=== PATIENT | female | born 1965 | race American Indian/Alaskan Native ===

== ENCOUNTER 2017-12-03 17:44 | Emergency (ER) | payer OTHER ==
[2017-12-03 18:00] VITALS: BP 174/83
--- NOTE | 2017-12-03 19:02 | XRay Report ---
FINAL REPORT EXAM: XR SHOULDER 2+V LT HISTORY: injury/PULLED BY DOG ON LEASH TECHNIQUE: Frontal and Y-views left shoulder Comparison: None FINDINGS: There is no evidence of fracture or subluxation. The soft tissues are unremarkable. IMPRESSION: 1. No evidence of fracture or subluxation. If the patient remains symptomatic MRI may be helpful for further evaluation.
--- NOTE | 2017-12-03 20:16 | Emergency Department Report ---
HPI - General Chief Complaint: Shoulder Injury Time Seen by Provider: 12/03/17 19:58 - HPI HPI: 52-year-old female presents to the emergency department with complaint of a 2 day history of left shoulder pain that started after the patient was walking her pit bull who tried running off in one direction while she was pulling the lesion another. Since that time the pain is gotten progressively worse. She thought she just pulled a muscle but it is gotten to the point where she has difficulty moving her left upper extremity at all secondary to the pain. She tried some ibuprofen for her symptoms without much relief. She denies any fall to the ground. She has a history of hypertension, coronary artery disease and previous NM. She presents with some elevated blood pressure but says that she has not taken her lisinopril over the past one or 2 days. She gets her primary care down through the [facility]. ED Past Medical Hx - Past Medical History Hx Hypertension: Yes Hx Heart Attack/AMI: Yes (x2) - Surgical History Additional Surgical History: c section - Social History Smoking Status: Current Every Day Smoker - Medications Home Medications: Home Medications Medication Instructions Recorded Confirmed Last Taken Type HYDROcodone/APAP 5-325 [[place] 1 each PO Q6HR PRN #10 tablet 12/03/17 Unknown Rx 5/325] ED Review of Systems ROS: Stated complaint: DISLOCATED SHOULDER Other details as noted in HPI Comment: All other systems reviewed and negative Constitutional: denies: chills, fever Eyes: denies: eye pain, eye discharge, vision change ENT: denies: ear pain, throat pain Respiratory: denies: cough, shortness of breath, wheezing Cardiovascular: denies: chest pain, palpitations Gastrointestinal: denies: abdominal pain, nausea, diarrhea Genitourinary: denies: urgency, dysuria, discharge Musculoskeletal: arthralgia. denies: back pain Skin: denies: rash, lesions Neurological: denies: headache, weakness Physical Exam - Physical Exam Vital Signs: Vital Signs 12/03/17 17:53 Temperature 99.4 F Pulse Rate 91 H Respiratory 18 Rate Blood Pressure 174/83 O2 Sat by Pulse 100 Oximetry Physical Exam: GENERAL: The patient is well-developed well-nourished. HENT: Normocephalic. Atraumatic. Patient has moist mucous membranes. EYES: Extraocular motions are intact. NECK: Supple. Trachea is midline. CHEST/LUNGS: Clear to auscultation. There is no respiratory distress noted. HEART/CARDIOVASCULAR: Regular. There is no tachycardia. There is no murmur. ABDOMEN: Abdomen is soft, nontender. Patient has normal bowel sounds. There is no abdominal distention. SKIN: Skin is warm and dry. NEURO: The patient is awake, alert, and oriented. The patient is cooperative. The patient has no focal neurologic deficits. The patient has normal speech. MUSCULOSKELETAL: There is tenderness to palpation to the left anterior and lateral shoulder but always deformity. There is decreased range of motion of the left upper extremity with both passive and active movement secondary to pain. Radial pulse +2 over 4 to the affected left upper extremity. ED Course Vital Signs 12/03/17 17:53 Temperature 99.4 F Pulse Rate 91 H Respiratory 18 Rate Blood Pressure 174/83 O2 Sat by Pulse 100 Oximetry ED Medical Decision Making - Radiology Data Radiology results: image reviewed interpreted by me: X-ray of the left shoulder does not show any fracture, dislocation or any other acute process. - Medical Decision Making Patient's been dealing with 2 days of left shoulder pain after having it be tugged at by a very strong dog. Since that time she has had trouble with range of motion and has had pain. No obvious swelling or deformity. On examination she appears neurovascularly intact but has pain and trouble with range of motion with both passive and active movement of the affected left upper extremity at the shoulder. X-ray did not show any fracture, dislocation, subluxation. Based on her discomfort and the injury, I suspect that there may be a rotator cuff injury or a muscle tear. The patient will most likely need an MRI but this can be done in the outpatient setting and the patient has been given multiple referrals for orthopedic services. She was placed in an arm sling and given a small amount of pain medication. She will return to the ER with any worsening of her symptoms or any acute distress. The patient does present with some elevated blood pressure. She does have a history of hypertension but has been noncompliant over the past day or so with her lisinopril. We discussed staying away from foods that are high in salt, caffeinated products, avoiding tobacco use and restarting her blood pressure medications. She will keep a blood pressure log. - Differential Diagnosis fracture, dislocation, subluxation, rotator cuff injury Critical Care Time: No Critical care attestation.: If time is entered above; I have spent that time in minutes in the direct care of this critically ill patient, excluding procedure time. ED Disposition Clinical Impression: Left shoulder pain Qualifiers: Chronicity: acute Qualified Code(s): M25.512 - Pain in left shoulder Shoulder injury Qualifiers: Encounter type: initial encounter Laterality: left Qualified Code(s): S49.92XA - Unspecified injury of left shoulder and upper arm, initial encounter Hypertension Qualifiers: Hypertension type: essential hypertension Qualified Code(s): I10 - Essential ( primary) hypertension Disposition: - TO HOME OR SELFCARE Is pt being admited?: No Condition: Stable Instructions: Rotator Cuff Injury (ED), Shoulder Sprain (ED), Hypertension (ED) Additional Instructions: Please follow up with an orthopedic group as soon as possible regarding your left shoulder pain. We are placing you in an arm sling to help support the shoulder and your discomfort. Try and stay away from foods that are high in salt and caffeinated products, and stay away from any tobacco products, to help with your blood pressure. Take your blood pressure medication as prescribed. Keep a blood pressure log. Return to the emergency Department with any worsening of your symptoms or any acute distress. You have been prescribed a medication that is sedating and therefore should not be taken prior to driving, working, and responsible for children and in no way should be mixed with alcohol of any quantity. Prescriptions: HYDROcodone/APAP 5-325 [Van Orin 5/325] 1 each PO Q6HR PRN #10 tablet PRN Reason: Pain Referrals: DENNYS SIMS MD [Staff Physician] - [facility] [Provider Group] - [facility] Forms: Work/School Release Form(ED)
== END 2017-12-03 20:47 | disposition home or self-care (01) ==
LOC: ED 17:44
DX: S49.92XA Unspecified injury of left shoulder and upper arm, initial encounter (principal); I10 Essential (primary) hypertension; I25.2 Old myocardial infarction; I25.10 Atherosclerotic heart disease of native coronary artery without angina pectoris; F17.200 Nicotine dependence, unspecified, uncomplicated; W22.8XXA Striking against or struck by other objects, initial encounter; Y93.89 Activity, other specified; Y92.89 Other specified places as the place of occurrence of the external cause; Y99.8 Other external cause status
CPT/HCPCS: 99283

== ENCOUNTER 2021-02-27 07:54 | Emergency (ER) | payer OTHER ==
[2021-02-27] MEDS ORDERED: SODIUM CHLORIDE 0.9% 1000 ML 1,000 ML IV ONE (11:04)
[2021-02-27] MEDS ORDERED: METOCLOPRAMIDE 10 MG/2 ML INJ IV ONE (11:05)
--- NOTE | 2021-02-27 11:10 | Emergency Department Report ---
ED General Adult HPI - General Chief complaint: Dizziness Stated complaint: dizziness Time Seen by Provider: 02/27/21 10:30 Source: patient, EMS Mode of arrival: Wheelchair Limitations: No Limitations - History of Present Illness Initial comments: Patient is 55 years old female with no significant past medical history. Patient works at [employer]. She stated that she took her flu shot 3 days ago and the next day she started having nausea vomiting and diarrhea. She stated that it get better a little bit but this morning she started having more nausea vomiting and diarrhea. Patient brought to the emergency room complaining of dizziness. Patient stated that she received Zofran by EMS and it helped with her nausea and vomiting but she still nauseated. She denied any fever or chills. No headache no focal weakness numbness or tingling sensation. She also denied any chest pain or shortness of breath. Severity scale (0 -10): 0 - Related Data Home Medications Medication Instructions Recorded Confirmed Last Taken Atorvastatin [Lipitor] 40 mg PO QHS 01/29/18 02/27/21 Unknown Losartan/Hydrochlorothiazide 1 tab PO QDAY 01/29/18 02/27/21 Unknown [Hyzaar 50-12.5 TAB] Previous Rx's Medication Instructions Recorded Last Taken Type Aspirin EC [Halfprin EC] 81 mg PO QDAY #30 tablet 01/31/18 Unknown Rx Allergies Allergy/AdvReac Type Severity Reaction Status Date / Time No Known Allergies Allergy Verified 02/27/21 12:46 ED Review of Systems ROS: Stated complaint: dizziness Other details as noted in HPI Comment: All other systems reviewed and negative Constitutional: denies: chills, fever Respiratory: denies: cough, shortness of breath, SOB with exertion, SOB at rest Gastrointestinal: abdominal pain Musculoskeletal: denies: back pain Neurological: denies: headache, weakness, numbness, paresthesias, confusion ED Past Medical Hx - Past Medical History Hx Hypertension: Yes Hx Heart Attack/AMI: Yes Hx COPD: No - Surgical History Additional Surgical History: c section - Social History Smoking Status: Former Smoker - Medications Home Medications: Home Medications Medication Instructions Recorded Confirmed Last Taken Type Atorvastatin [Lipitor] 40 mg PO QHS 01/29/18 02/27/21 Unknown History Losartan/Hydrochlorothiazide 1 tab PO QDAY 01/29/18 02/27/21 Unknown History [Hyzaar 50-12.5 TAB] Aspirin EC [Halfprin EC] 81 mg PO QDAY #30 tablet 01/31/18 02/27/21 Unknown Rx ED Physical Exam - General Limitations: No Limitations General appearance: alert, in no apparent distress - Head Head exam: Present: atraumatic, normocephalic, normal inspection - Eye Eye exam: Present: normal appearance, PERRL - ENT ENT exam: Present: normal exam, normal orophraynx, mucous membranes moist - Neck Neck exam: Present: normal inspection, full ROM. Absent: tenderness, meningismus - Respiratory Respiratory exam: Present: normal lung sounds bilaterally - Cardiovascular Cardiovascular Exam: Present: regular rate, normal rhythm, normal heart sounds - GI/Abdominal GI/Abdominal exam: Present: soft, normal bowel sounds. Absent: distended, tenderness, guarding, rebound, rigid, hyperactive bowel sounds, hypoactive bowel sounds, organomegaly, mass, bruit, pulsatile mass - Extremities Exam Extremities exam: Present: normal inspection, full ROM, normal capillary refill. Absent: tenderness - Back Exam Back exam: Present: normal inspection, full ROM. Absent: CVA tenderness (R), CVA tenderness (L) - Neurological Exam Neurological exam: Present: alert, oriented X3, CN II-XII intact, normal gait, reflexes normal. Absent: motor sensory deficit - Psychiatric Psychiatric exam: Present: normal mood - Skin Skin exam: Present: warm, intact, normal color ED Course Vital Signs 02/27/21 02/27/21 02/27/21 07:58 12:36 12:38 Temperature 98.6 F 98.6 F Pulse Rate 101 H 71 Respiratory 18 18 Rate Blood Pressure Blood Pressure 152/76 125/76 [Left] O2 Sat by Pulse 96 99 99 Oximetry 02/27/21 12:39 Temperature 98.6 F Pulse Rate 71 Respiratory 18 Rate Blood Pressure 125/76 Blood Pressure [Left] O2 Sat by Pulse 99 Oximetry ED Medical Decision Making - Lab Data Result diagrams: 02/27/21 12:32 02/27/21 12:32 - EKG Data -: EKG Interpreted by Nc EKG shows normal: sinus rhythm Rate: normal - EKG Data Interpretation: no acute changes - Radiology Data Radiology results: report reviewed - Medical Decision Making Patient is 55 years old female with no significant past medical history. Patient works at [employer]. She stated that she took her flu shot 3 days ago and the next day she started having nausea vomiting and diarrhea. She stated that it get better a little bit but this morning she started having more nausea vomiting and diarrhea. Patient brought to the emergency room complaining of dizziness. Patient stated that she received Zofran by EMS and it helped with her nausea and vomiting but she still nauseated. She denied any fever or chills. No headache no focal weakness numbness or tingling sensation. She also denied any chest pain or shortness of breath. EKG is unremarkable. Labs reviewed and showed no acute abnormalities. Patient symptoms most likely related to viral illness. Patient given prescription for Zofran and advised to follow-up with her primary doctor in the next 2 to 3 days and to return to the ER if she develop any new symptoms. Critical care attestation.: If time is entered above; I have spent that time in minutes in the direct care of this critically ill patient, excluding procedure time. ED Disposition Clinical Impression: Dizziness, Acute nausea with nonbilious vomiting, Viral illness Disposition: 01 HOME / SELF CARE / HOMELESS Is pt being admited?: No Condition: Stable Instructions: Nausea and Vomiting, Adult, [id number], Dizziness, Viral Illness, Adult Referrals: PRIMARY CARE, [Primary Care Provider] - 3-5 Days
--- NOTE | 2021-02-27 11:40 | XRay Report ---
CHEST 1 VIEW 02/27/2021 10:33 AM INDICATION / CLINICAL INFORMATION: Lightheadedness/Dizziness. COMPARISON: 02/07/2018 FINDINGS: SUPPORT DEVICES: None. HEART / MEDIASTINUM: No significant abnormality. LUNGS / PLEURA: No significant pulmonary or pleural abnormality. No pneumothorax. ADDITIONAL FINDINGS: No significant additional findings. IMPRESSION: 1. No acute findings. Signer Name: Cleveland Lucas MD Signed: 02/27/2021 11:36 AM Workstation Name: [id number]
[2021-02-27 13:43] LABS: Blood Urea Nitrogen 14 mg/dL (7-17); Calcium 8.1 mg/dL (8.4-10.2); Hemolysis Index 6
[2021-02-27 13:47] LABS: Hematocrit 37.2 % (30.3-42.9); Hemoglobin 11.9 gm/dl (10.1-14.3); Mean Corpuscular HGB Conc 32 % (30-34); Mean Corpuscular Volume 92 fl (79-97); Platelet Count 294 K/mm3 (140-440); Red Blood Count 4.04 M/mm3 (3.65-5.03); Red Cell Distribution Width 13.9 % (13.2-15.2)
[2021-02-27 13:54] LABS: BUN/Creatinine Ratio 23
[2021-02-27 14:31] LABS: Bilirubin,Urine NEG (Negative); Blood,Urine SM (Negative); Color,Urine Straw (Yellow); Mucus,Urine FEW /HPF; Protein,Urine <15 mg/dL mg/dL (Negative); RBC,Urine < 1.0 /HPF (0.0-6.0); Urobilinogen,Urine < 2.0 mg/dL (<2.0)
[2021-02-27 15:01] VITALS: BP 121/79
[2021-02-27 18:46] LABS: Total Cells Counted 100
[2021-02-27 18:47] LABS: Anisocytosis RARE; Schistocytes Rare
== END 2021-02-27 15:00 | disposition home or self-care (01) ==
LOC: ED 07:54
DX: B34.9 Viral infection, unspecified (principal); R42 Dizziness and giddiness; R11.2 Nausea with vomiting, unspecified; I10 Essential (primary) hypertension; Z79.82 Long term (current) use of aspirin; Z79.899 Other long term (current) drug therapy; Z87.891 Personal history of nicotine dependence
CPT/HCPCS: 36415; 71045; 80048; 81001; 84484; 85007; 85025; 96361; 96374; 99284; J2765; J7030; Q0162